=== PATIENT | female | born 2000 ===

== ENCOUNTER 2020-04-10 07:23 | Inpatient (IN) | payer OTHER ==
[~2020-04-10] VITALS: Ht 149.9 cm; Wt 3.2 kg
[2020-04-16] MEDS ORDERED: PRENATAL TABLE1 EAC1 PO (22:24)
== END 2020-04-20 13:30 | disposition home or self-care (01) | DRG 788 ==
LOC: LDR 04-16 22:19 → OB/GYN 04-16 22:19
PROVIDERS: ADMIT Specialist; ATTEND Specialist
PROC: 4A1HXCZ Monitoring of Products of Conception, Cardiac Rate, External Approach (ICD-10-PCS; 2020-04-17)
PROC: 10D00Z1 Extraction of Products of Conception, Low, Open Approach (ICD-10-PCS; principal; 2020-04-17 11:45)
DX: O82 Encounter for cesarean delivery without indication (principal); O76 Abnormality in fetal heart rate and rhythm complicating labor and delivery; Z3A.39 39 weeks gestation of pregnancy; Z37.0 Single live birth; Z20.828 Contact with and (suspected) exposure to other viral communicable diseases

== ENCOUNTER 2023-01-14 20:23 | Inpatient (IN) | payer OTHER ==
[~2023-01-14] VITALS: Ht 149.9 cm; Wt 59.0 kg
[~2023-01-14 20:23] MED LIST: PRENATAL TABLE1 EAC1 PO
[2023-01-17] MEDS ORDERED: NIFEDIPINE ER30 MG PO (08:19)
== END 2023-01-17 09:12 | disposition home or self-care (01) | DRG 833 ==
LOC: OBS/DEL 20:23 → LDR 01-15 20:26 → OB/GYN 01-15 20:26
PROVIDERS: ADMIT Specialist; ATTEND Specialist
PROC: 4A1HXCZ Monitoring of Products of Conception, Cardiac Rate, External Approach (ICD-10-PCS; principal; 2023-01-15)
PROC: BY4FZZZ Ultrasonography of Third Trimester, Single Fetus (ICD-10-PCS; 2023-01-15)
DX: O60.03 Preterm labor without delivery, third trimester (principal); O76 Abnormality in fetal heart rate and rhythm complicating labor and delivery; Z3A.34 34 weeks gestation of pregnancy; Z20.822 Contact with and (suspected) exposure to COVID-19

== ENCOUNTER 2023-02-07 12:45 | Inpatient (IN) | payer OTHER ==
[~2023-02-07] VITALS: Ht 124.5 cm; Wt 3.2 kg
[~2023-02-07 12:45] MED LIST changes: +NIFEDIPINE ER30 MG PO
[2023-02-08] MEDS ORDERED: PRENATAL + DHA1 EAC1 (11:20)
== END 2023-02-11 12:33 | disposition home or self-care (01) | DRG 785 ==
LOC: LDR 02-08 06:29 → OB/GYN 02-08 06:29
PROVIDERS: ADMIT Specialist; ATTEND Specialist
PROC: 0UB70ZZ Excision of Bilateral Fallopian Tubes, Open Approach (ICD-10-PCS; 2023-02-08)
PROC: 4A1HXCZ Monitoring of Products of Conception, Cardiac Rate, External Approach (ICD-10-PCS; 2023-02-08)
PROC: 10D00Z1 Extraction of Products of Conception, Low, Open Approach (ICD-10-PCS; principal; 2023-02-08 10:00)
DX: O34.211 Maternal care for low transverse scar from previous cesarean delivery (principal); Z30.2 Encounter for sterilization; Z3A.38 38 weeks gestation of pregnancy; Z20.822 Contact with and (suspected) exposure to COVID-19; Z37.0 Single live birth

== ENCOUNTER 2023-02-21 20:48 | Emergency (ER) | payer OTHER ==
[~2023-02-21] VITALS: Ht 149.9 cm; Wt 54.4 kg
[~2023-02-21 20:48] MED LIST changes: +PRENATAL + DHA1 EAC1
== END 2023-02-21 22:23 | disposition home or self-care (01) ==
LOC: ER 20:48
DX: O90.89 Other complications of the puerperium, not elsewhere classified (principal); T81.31XA Disruption of external operation (surgical) wound, not elsewhere classified, initial encounter; Z91.018 Allergy to other foods